=== PATIENT | female | born 1975 | race African-American/Black ===

== ENCOUNTER 2017-07-12 14:58 | Emergency (ER) | payer MEDICAID ==
[~2017-07-12] VITALS: Ht 167.6 cm; Wt 61.2 kg
[2017-07-12] MEDS ORDERED: ALBUTEROL SULF8.5 GM INH (15:09)
--- NOTE | 2017-07-12 15:34 | Emergency Room Report ---
History of Present Illness General Chief Complaint: Lower Extremity Injury Source: Patient Present Illness HPI Patient is a 41-year-old female who presents today with complaints of right ankle pain that began 2 nights ago. She states she rolled her right ankle which actually stepped in a pothole. She is complaining of 7 at 10 pain at this time, last took Motrin at 10:00 this morning with some relief. She denies any numbness, tingling, loss of sensation. Allergies: Coded Allergies: Pork (Verified Allergy, Unknown, 07/12/17) Patient History Last Menstrual Period: 05/2018 Reviewed Nursing Documentation: PMH: Agreed, PSxH: Agreed Nursing Documentation-PMH Past Medical History: No History, Except For Hx Asthma: Yes Review of Systems Musculoskeletal: Reports: other - right ankle pain All Other Systems: negative except mentioned in HPI Physical Exam Vital Signs Date Time Temp Pulse Resp B/P (MAP) Pulse Ox O2 Delivery O2 Flow Rate FiO2 07/12/17 15:03 98.2 75 16 109/76 99 Room Air Sp02 EP Interpretation: reviewed, normal General Appearance: no apparent distress, alert, GCS 15, non-toxic Head: normocephalic, atraumatic Eyes: bilateral eye normal inspection, bilateral eye PERRL ENT: hearing grossly normal, normal pharynx, no angioedema, normal voice Neck: full range of motion, supple/symm/no masses Respiratory: chest non-tender, lungs clear, normal breath sounds, speaking full sentences Cardiovascular #1: regular rate, rhythm, no edema Cardiovascular #2: 2+ carotid (R), 2+ carotid (L), 2+ radial (R), 2+ radial (L) , 2+ dorsalis pedis (R), 2+ dorsalis pedis (L) Gastrointestinal: normal bowel sounds, non tender, soft, non-distended, no guarding, no rebound Rectal: deferred Genitourinary: normal inspection, no CVA tenderness Musculoskeletal: back normal, gait/station normal, normal range of motion, calf tenderness, other - ttp right ankle, edema about the ankle with overlying ecchymosis, decreased ROM at the right ankle Neurologic: alert, oriented x3, responsive, motor strength/tone normal, sensory intact, speech normal Psychiatric: judgement/insight normal, memory normal, mood/affect normal, no suicidal/homicidal ideation Reflexes: 3+ bicep (R), 3+ bicep (L), 3+ tricep (R), 3+ tricep (L), 3+ knee (R) , 3+ knee (L) Skin: normal color, no rash, warm/dry, well hydrated Lymphatic: no adenopathy Medical Decision Making PA Attestation supervising physician Dr. Welsh Diagnostic Impression: Primary Impression: Foot fracture, right Additional Impression: Fall ER Course Patient is found to have a fracture of her right foot. She is placed in a short leg posterior splint, neurovascularly intact before and after splinting. Patient given crutches and is instructed to followup with or so within the next 5 days for casting. Fracture care was initiated in in the ED. Other X-Ray Diagnostic Results Other X-Ray Diagnostic Results : X-Ray ordered: xr foot # of Views/Limited Vs Complete: 4 View Indication: Pain EP Interpretation: Yes PA Xray: Interpretation reviewed, by supervising MD, and agrees with findings. Interpretation: no dislocation, other - fx of navicular, soft tissue swelling Impression: Other - fx of navicular Electronically Signed by: carli FERNANDEZ Scribe Text xr 2: ankle, 4views soft tissue swelling, no fracture, normal alignment CARLI Reevaluation Time: 16:46 Last Vital Signs Date Time Temp Pulse Resp B/P (MAP) Pulse Ox O2 Delivery O2 Flow Rate FiO2 07/12/17 15:03 98.2 75 16 109/76 99 Room Air Status: improved Disposition: HOME, SELF-CARE Condition: Stable Scripts Hydrocodone Bit/Acetaminophen 5-325* (NORCO 5-325*) 1 Each Tablet 1 TAB ORAL Q4H Y for For Pain, #20 TAB 0 Refills Prov: Marielle Mejia 07/12/17 Patient Instructions: Avulsion Fracture of the Foot Marielle Mejia Jul 12, 2017 15:34
[2017-07-12] MEDS: Norco 5mg/325mg tab ORAL ONE (15:35)
--- NOTE | 2017-07-12 16:39 | Diagnostic Imaging Report ---
Indication: Pain, injury, status post fall Technique: 3 views of the right ankle Comparison: none Findings: No acute fractures. No dislocations. The joint spaces are preserved Impression: Negative
--- NOTE | 2017-07-12 16:43 | Diagnostic Imaging Report ---
Indication: Pain, injury, status post fall Technique: 3 views right foot Comparison: none Findings: There is a lucency through the posterior medial navicular, seen on the AP view only. This is distracted by a few millimeters, otherwise nondisplaced. No other evidence of acute fracture. No dislocations. Impression: Findings suspicious for fracture of the medial navicular. Correlate with clinical findings Findings discussed by phone with Marielle in the emergency room at the time of interpretation
[2017-07-12] MEDS ORDERED: NORCO 5-325 TA1 EACH ORAL (16:50)
[2017-07-12 17:34] VITALS: BP 122/83
== END 2017-07-12 17:36 | disposition home or self-care (01) ==
LOC: EMR 16:00
DX: S92.901A Unspecified fracture of right foot, initial encounter for closed fracture (principal); W01.0XXA Fall on same level from slipping, tripping and stumbling without subsequent striking against object, initial encounter; Y92.89 Other specified places as the place of occurrence of the external cause; J45.909 Unspecified asthma, uncomplicated
CPT/HCPCS: 99284